=== PATIENT | female | born 1985 | race Caucasian/White ===

== ENCOUNTER 2016-10-30 09:25 | Emergency (ER) | payer OTHER ==
[~2016-10-30] VITALS: Ht 177.8 cm; Wt 115.6 kg
[~2016-10-30 09:25] MED LIST: PREN1TAB60 PO; SUCR1ORA2 PO
[2016-10-30 09:27] VITALS: BP 130/75
[2016-10-30 10:40] LABS: HEMOGLOBIN 11.3 g/dL (11.7-16.4)
== END 2016-10-30 11:41 | disposition home or self-care (01) ==
LOC: ED 09:45
DX: O26.892 Other specified pregnancy related conditions, second trimester (principal); Z3A.39 39 weeks gestation of pregnancy; H11.31 Conjunctival hemorrhage, right eye
CPT/HCPCS: 36415; 85025; 85610; 85730; 99284

== ENCOUNTER 2016-11-06 07:00 | Inpatient (IN) | payer OTHER ==
[~2016-11-06] VITALS: Ht 175.3 cm; Wt 116.3 kg
[2016-11-06] MEDS ORDERED: OXYTOCIN 30U/ 0.9% NaCL 500ML 500 ML IV SCH (07:13)
[2016-11-06] MEDS ORDERED: LACTATED RINGERS 1,000 ML IV SCH (07:13)
[2016-11-06] MEDS ORDERED: METOCLOPRAMIDE 5 MG/ML, 2ML IV ONE (07:30)
[2016-11-06] MEDS ORDERED: LACTATED RINGERS 1,000 ML IVBOLUS ONE (07:30)
[2016-11-06] MEDS ORDERED: SODIUM CITRATE/CITRIC ACID 30 ML UDC PO ONE (07:30)
[2016-11-06] MEDS ORDERED: PLEASE ENTER HEIGHT AND WEIGHT MC SCH (07:30)
[2016-11-06] MEDS ORDERED: ONDANSETRON 2MG/ML, 2ML IVPush ONE (07:30)
[2016-11-06] MEDS ORDERED: FENTANYL PF 100 MCG/2ML ONE (09:54)
[2016-11-06] MEDS ORDERED: HYDROmorphone 2 MG/ML, 1ML ONE (09:55)
[2016-11-06] MEDS ORDERED: NEWBORN KIT ONE (10:12)
[2016-11-06] MEDS ORDERED: SODIUM CITRATE/CITRIC ACID 30 ML UDC ONE (10:38)
[2016-11-06] MEDS ORDERED: OXYTOCIN 30U/ 0.9% NaCL 500ML 500 ML ONE (10:39)
[2016-11-06] MEDS ORDERED: METOCLOPRAMIDE 5 MG/ML, 2ML ONE (10:39)
[2016-11-06] MEDS: LACTATED RINGERS 1,000 ML IV SCH ×4 (11:01→21:24)
[2016-11-06] MEDS: OXYTOCIN 30U/ 0.9% NaCL 500ML 500 ML IV SCH ×2 (11:01→21:01)
[2016-11-06] MEDS ORDERED: OXYcodone/APAP 5/325MG TABLET PO PRN (11:30)
[2016-11-06] MEDS ORDERED: ACETAMINOPHEN 325 MG TABLET PO PRN (11:30)
[2016-11-06] MEDS ORDERED: METOCLOPRAMIDE 5 MG/ML, 2ML IV PRN (11:30)
[2016-11-06] MEDS ORDERED: SIMETHICONE 80 MG CHEW TAB PO PRN (11:30)
[2016-11-06] MEDS ORDERED: CALCIUM CARBONATE 500 MG TAB.CHEW PO PRN (11:30)
[2016-11-06 14:00] VITALS: BP 120/78
[2016-11-06] MEDS: OXYcodone/APAP 5/325MG TABLET PO PRN ×3 (14:30→22:43)
[2016-11-06 16:00] VITALS: BP 118/67
[2016-11-06] MEDS: KETOROLAC 30 MG/1 ML IV SCH (17:09)
[2016-11-06] MEDS: ONDANSETRON 2MG/ML, 2ML IV PRN (18:48)
[2016-11-06 21:00] VITALS: BP 108/64
[2016-11-06] MEDS: DOCUSATE 100 MG CAPSULE PO PRN (22:43)
[2016-11-07] MEDS: ONDANSETRON 2MG/ML, 2ML IV PRN ×3 (00:43→12:28)
[2016-11-07] MEDS: KETOROLAC 30 MG/1 ML IV SCH ×4 (00:43→12:28)
[2016-11-07 01:45] VITALS: BP 107/62
[2016-11-07] MEDS: OXYcodone/APAP 5/325MG TABLET PO PRN ×2 (02:47→06:27)
[2016-11-07] MEDS: LACTATED RINGERS 1,000 ML IV SCH ×5 (03:01→19:01)
[2016-11-07 05:00] VITALS: BP 110/61
[2016-11-07] MEDS: OXYTOCIN 30U/ 0.9% NaCL 500ML 500 ML IV SCH ×2 (07:01→17:01)
[2016-11-07 08:30] VITALS: BP 105/56
[2016-11-07] MEDS: DOCUSATE 100 MG CAPSULE PO PRN ×2 (08:30→21:32)
[2016-11-07] MEDS: PRENATAL VIT/IRON/FA 1 EACH TABLET PO SCH (08:30)
[2016-11-07] MEDS: OXYcodone/APAP 10/325MG TABLET PO PRN ×3 (12:28→21:32)
[2016-11-07] MEDS: ONDANSETRON ODT 4 MG PO PRN ×5 (12:40→21:32)
[2016-11-07] MEDS: IBUPROFEN 600 MG TABLET PO PRN (12:40)
[2016-11-07 21:00] VITALS: BP 132/72
[2016-11-08] MEDS: IBUPROFEN 600 MG TABLET PO PRN ×2 (01:18→07:49)
[2016-11-08] MEDS: OXYcodone/APAP 10/325MG TABLET PO PRN ×3 (01:21→10:53)
[2016-11-08] MEDS: LACTATED RINGERS 1,000 ML IV SCH ×3 (03:01→11:01)
[2016-11-08] MEDS: OXYTOCIN 30U/ 0.9% NaCL 500ML 500 ML IV SCH (03:01)
[2016-11-08] MEDS: ONDANSETRON ODT 4 MG PO PRN (06:25)
[2016-11-08] MEDS: PRENATAL VIT/IRON/FA 1 EACH TABLET PO SCH (07:49)
[2016-11-08] MEDS: DOCUSATE 100 MG CAPSULE PO PRN (07:49)
[2016-11-08 08:32] VITALS: BP 120/72
[2016-11-08] MEDS ORDERED: IBUP-1222 PO (09:00)
[2016-11-08] MEDS ORDERED: DOCU-30 PO (09:02)
[2016-11-08] MEDS ORDERED: OXYC-302 PO (09:04)
== END 2016-11-08 12:35 | disposition home or self-care (01) | DRG 766 ==
LOC: LDIP 07:00 → 2NW 13:42
PROVIDERS: ADMIT Obstetrics & Gynecology; ATTEND Obstetrics & Gynecology
PROC: 10D00Z1 Extraction of Products of Conception, Low, Open Approach (ICD-10-PCS; principal; 2016-11-06)
DX: O34.211 Maternal care for low transverse scar from previous cesarean delivery (principal); Z37.0 Single live birth; Z3A.39 39 weeks gestation of pregnancy; O99.62 Diseases of the digestive system complicating childbirth; K21.9 Gastro-esophageal reflux disease without esophagitis; F32.9 Major depressive disorder, single episode, unspecified; O32.1XX0 Maternal care for breech presentation, not applicable or unspecified; O99.344 Other mental disorders complicating childbirth; Z86.14 Personal history of Methicillin resistant Staphylococcus aureus infection; Z83.3 Family history of diabetes mellitus; Z82.5 Family history of asthma and other chronic lower respiratory diseases
CPT/HCPCS: 36415; 85025; 86850; 86900; J1170; J1885; J2405; J3010; Q0162; J2590; J2765; J7120

== ENCOUNTER 2017-06-17 18:34 | Emergency (ER) | payer OTHER ==
[~2017-06-17] VITALS: Ht 175.3 cm; Wt 99.9 kg
[~2017-06-17 18:34] MED LIST changes: +DOCU-131 PO; +IBUP-1222 PO; +OXYC-302 PO; -SUCR1ORA2 PO; +SUCR1ORA5 PO
[2017-06-17] MEDS ORDERED: ONDANSETRON 2MG/ML, 2ML IVPush ONE (19:30)
[2017-06-17] MEDS ORDERED: SODIUM CHLORIDE FLUSH 10ML SYR IVF ONE (19:30)
[2017-06-17] MEDS ORDERED: FAMOTIDINE 20 MG/2 ML IVP ONE (19:30)
[2017-06-17] MEDS ORDERED: SODIUM CHLORIDE 0.9% 1,000ML IVBOLUS ONE (19:30)
[2017-06-17] MEDS ORDERED: DIPHENHYDRAMINE 50 MG/ML, 1ML ONE (19:42)
[2017-06-17] MEDS ORDERED: KETOROLAC 30 MG/1 ML ONE (19:42)
[2017-06-17] MEDS ORDERED: METOCLOPRAMIDE 5 MG/ML, 2ML ONE (19:42)
[2017-06-17] MEDS ORDERED: FAMOTIDINE 20 MG/2 ML ONE (19:42)
[2017-06-17 19:48] LABS: HEMATOCRIT 43.2 % (34.6-47.8); HEMOGLOBIN 14.1 g/dL (11.7-16.4); WHITE BLOOD COUNT 9.1 x10^3/uL (3.4-10)
[2017-06-17 19:54] LABS: ASPARTATE AMINO TRANSFERASE 14 U/L (15-37); BLOOD UREA NITROGEN 16 mg/dL (7-18)
[2017-06-17] MEDS ORDERED: KETOROLAC 30 MG/1 ML IM ONE (20:00)
[2017-06-17] MEDS ORDERED: DIPHENHYDRAMINE 50 MG/ML, 1ML IVPush ONE (20:00)
[2017-06-17] MEDS ORDERED: METOCLOPRAMIDE 5 MG/ML, 2ML IVPush ONE (20:00)
[2017-06-17] MEDS ORDERED: KETOROLAC 30 MG/1 ML IVPush ONE (21:00)
[2017-06-17 21:09] VITALS: BP 112/62
== END 2017-06-17 22:25 | disposition home or self-care (01) ==
LOC: ED 20:12
DX: K52.9 Noninfective gastroenteritis and colitis, unspecified (principal)
CPT/HCPCS: 36415; 80053; 81003; 83690; 84703; 85025; 96361; 96374; 96375; 99285; J1200; J1885; J2765; J7030; S0028

== ENCOUNTER 2020-07-08 10:00 | Inpatient (IN) | payer OTHER, BC ==
[~2020-07-08] VITALS: Ht 172.7 cm; Wt 129.5 kg
[2020-07-08] MEDS ORDERED: LACTATED RINGERS 1,000 ML IVBOLUS ONE (10:30)
[2020-07-08] MEDS ORDERED: PLEASE ENTER HEIGHT AND WEIGHT MC SCH (11:00)
[2020-07-08 11:11] LABS: BASOPHILS % (AUTO) 0 % (0-1); EOSINOPHILS % (AUTO) 1 % (1-7); LYMPHOCYTES % (AUTO) 21 % (22-44); MEAN CORPUSCULAR HEMOGLOBIN 29.9 pg (27.0-34.8); MEAN CORPUSCULAR HGB CONC 33.3 g/dL (32.4-35.8); MONOCYTES % (AUTO) 6 % (2-9); NEUTROPHILS % (AUTO) 72 % (42-75); PLATELET COUNT 162 x10^3/uL (130-400); RED BLOOD COUNT 4.17 x10^6/uL (3.82-5.3); RED CELL DISTRIBUTION WIDTH 13.5 % (9.6-15.2)
[2020-07-08 11:13] LABS: MD NO
[2020-07-08] MEDS ORDERED: OXYTOCIN 30U/ 0.9% NaCL 500ML 500 ML ONE (11:27)
[2020-07-08] MEDS ORDERED: METOCLOPRAMIDE 5 MG/ML, 2ML ONE (11:27)
[2020-07-08] MEDS ORDERED: SODIUM CITRATE/CITRIC ACID 15 ML UDC ONE (11:27)
[2020-07-08] MEDS ORDERED: MISOPROSTOL 200 MCG TABLET ONE (11:27)
[2020-07-08] MEDS: LACTATED RINGERS 1,000 ML IV SCH ×4 (11:30→23:30)
[2020-07-08] MEDS ORDERED: FENTANYL PF 100 MCG/2ML ONE (11:35)
[2020-07-08] MEDS ORDERED: OXYTOCIN 10 UNITS/ML, 1ML ONE ×4 (11:43→11:44)
[2020-07-08] MEDS ORDERED: KETOROLAC 30 MG/1 ML ONE (11:44)
[2020-07-08] MEDS ORDERED: CLINDAMYCIN PMX 900MG/50ML 0 ML ONE (11:45)
[2020-07-08] MEDS ORDERED: CEFAZOLIN 1,000 MG ONE ×3 (12:02→12:03)
[2020-07-08] MEDS ORDERED: EPHEDRINE 50 MG/ML, 1ML ONE ×2 (12:46)
[2020-07-08] MEDS ORDERED: NEWBORN KIT ONE (13:09)
[2020-07-08] MEDS: KETOROLAC 30 MG/1 ML IV SCH ×2 (13:30→19:46)
[2020-07-08] MEDS ORDERED: MISOPROSTOL 200 MCG TABLET PR PRN (13:30)
[2020-07-08] MEDS ORDERED: ACETAMINOPHEN 325 MG TABLET PO PRN (13:30)
[2020-07-08] MEDS: OXYTOCIN 30U/ 0.9% NaCL 500ML 500 ML IV SCH ×2 (13:30→23:30)
[2020-07-08] MEDS ORDERED: ONDANSETRON 2MG/ML, 2ML IV PRN (13:30)
[2020-07-08] MEDS ORDERED: OXYcodone IR 5MG TABLET PO PRN ×2 (13:30)
[2020-07-08] MEDS ORDERED: DIPHENHYDRAMINE 50 MG/ML, 1ML ONE (13:54)
[2020-07-08] MEDS ORDERED: FENTANYL PF 100 MCG/2ML IV PRN (14:00)
[2020-07-08] MEDS ORDERED: OXYcodone 5 MG/5 ML ORAL.SOL UDC PO PRN (14:00)
[2020-07-08] MEDS ORDERED: ONDANSETRON 2MG/ML, 2ML IVPush PRN (14:00)
[2020-07-08] MEDS ORDERED: LABETALOL 5MG/ML, 20ML IV PRN (14:00)
[2020-07-08] MEDS ORDERED: DIPHENHYDRAMINE 50 MG/ML, 1ML IVPush PRN (14:00)
[2020-07-08] MEDS ORDERED: EPHEDRINE 50 MG/ML, 1ML IM PRN (14:00)
[2020-07-08] MEDS ORDERED: METOCLOPRAMIDE 5 MG/ML, 2ML IVPush PRN (14:00)
[2020-07-08] MEDS ORDERED: EPHEDRINE 50 MG/ML, 1ML IVPush PRN (14:00)
[2020-07-08] MEDS ORDERED: OXYcodone 5 MG/5 ML ORAL.SOL UDC ONE (14:20)
[2020-07-08] MEDS ORDERED: MORPHINE SULFATE 4 MG/ML, 1ML ONE ×3 (14:55→15:48)
[2020-07-08] MEDS: morphine SULFATE 10 MG/ML, 1ML IVPush PRN ×2 (15:00→15:12)
[2020-07-08 15:15] VITALS: BP 121/86
[2020-07-08] MEDS ORDERED: SODIUM CITRATE/CITRIC ACID 30 ML UDC PO ONE (15:30)
[2020-07-08 16:30] VITALS: BP 129/81
[2020-07-08] MEDS: SIMETHICONE 80 MG CHEW TAB PO PRN (16:55)
[2020-07-08] MEDS: MORPHINE SULFATE 4 MG/ML, 1ML IVPush PRN (18:39)
[2020-07-08 19:30] VITALS: BP 130/78
[2020-07-08] MEDS: CETIRIZINE 10 MG TABLET PO SCH (21:25)
[2020-07-08] MEDS: DOCUSATE 100 MG CAPSULE PO PRN (21:25)
[2020-07-08] MEDS: SERTRALINE 100MG TABLET PO SCH (21:25)
[2020-07-08] MEDS: OXYcodone IR 5MG TABLET PO PRN (21:26)
[2020-07-08 23:54] LABS: BASOPHILS % (AUTO) 0 % (0-1); EOSINOPHILS % (AUTO) 0 % (1-7); LYMPHOCYTES % (AUTO) 19 % (22-44); MEAN CORPUSCULAR HEMOGLOBIN 30.2 pg (27.0-34.8); MEAN CORPUSCULAR HGB CONC 33.5 g/dL (32.4-35.8); MEAN PLATELET VOLUME 9.6 fL (7.4-10.4); MONOCYTES % (AUTO) 5 % (2-9); NEUTROPHILS % (AUTO) 75 % (42-75); PLATELET COUNT 126 x10^3/uL (130-400); RED BLOOD COUNT 3.57 x10^6/uL (3.82-5.3); RED CELL DISTRIBUTION WIDTH 13.1 % (9.6-15.2)
[2020-07-08 23:56] LABS: MD NO
[2020-07-09] VITALS: BP 116/79
[2020-07-09] MEDS: SIMETHICONE 80 MG CHEW TAB PO PRN ×3 (00:32→20:48)
[2020-07-09] MEDS: MORPHINE SULFATE 4 MG/ML, 1ML IVPush PRN ×2 (00:36→07:07)
[2020-07-09] MEDS: KETOROLAC 30 MG/1 ML IV SCH ×4 (01:58→20:48)
[2020-07-09] MEDS: OXYcodone IR 5MG TABLET PO PRN ×5 (01:59→14:49)
[2020-07-09 04:33] VITALS: BP 113/78
[2020-07-09] MEDS: LACTATED RINGERS 1,000 ML IV SCH ×5 (05:30→21:30)
[2020-07-09] MEDS: DOCUSATE 100 MG CAPSULE PO PRN ×3 (07:07→20:48)
[2020-07-09] MEDS: PRENATAL VIT/IRON/FA 1 EACH TABLET PO SCH (07:07)
[2020-07-09] MEDS ORDERED: MEPERIDINE/PF 50 MG/ML ONE ×4 (07:45→15:27)
[2020-07-09 07:53] VITALS: BP 114/72
[2020-07-09] MEDS: MEPERIDINE/PF 25MG/0.5ML IM PRN ×3 (07:55→15:33)
[2020-07-09] MEDS: OXYTOCIN 30U/ 0.9% NaCL 500ML 500 ML IV SCH ×2 (09:30→19:30)
[2020-07-09 12:20] VITALS: BP 112/71
[2020-07-09] MEDS: CALCIUM CARBONATE 500 MG TAB.CHEW PO PRN (16:19)
[2020-07-09] MEDS ORDERED: OMEPRAZOLE 20 MG CAPSULE.DR PO ONE (16:30)
[2020-07-09] MEDS ORDERED: POLYETHYLENE GLYCOL 17 GM PACKET PO PRN (17:00)
[2020-07-09] MEDS: OXYcodone/APAP 10/325MG TABLET PO PRN ×2 (17:29→20:49)
[2020-07-09 20:00] VITALS: BP 134/89
[2020-07-09] MEDS: CETIRIZINE 10 MG TABLET PO SCH (20:54)
[2020-07-09] MEDS: SERTRALINE 100MG TABLET PO SCH (21:00)
[2020-07-10] MEDS: KETOROLAC 30 MG/1 ML IV SCH ×2 (02:15→08:00)
[2020-07-10] MEDS: OXYcodone/APAP 10/325MG TABLET PO PRN ×6 (02:16→22:11)
[2020-07-10] MEDS: OXYTOCIN 30U/ 0.9% NaCL 500ML 500 ML IV SCH ×2 (05:30→15:30)
[2020-07-10] MEDS: LACTATED RINGERS 1,000 ML IV SCH ×5 (05:30→21:30)
[2020-07-10] MEDS: OMEPRAZOLE 20 MG CAPSULE.DR PO SCH (06:00)
[2020-07-10] MEDS: CALCIUM CARBONATE 500 MG TAB.CHEW PO PRN (06:28)
[2020-07-10 08:00] VITALS: BP 120/73
[2020-07-10] MEDS: SIMETHICONE 80 MG CHEW TAB PO PRN ×2 (08:00→13:50)
[2020-07-10] MEDS: DOCUSATE 100 MG CAPSULE PO PRN ×2 (08:00→20:21)
[2020-07-10] MEDS: PRENATAL VIT/IRON/FA 1 EACH TABLET PO SCH (08:00)
[2020-07-10] MEDS ORDERED: MEPERIDINE/PF 50 MG/ML ONE (10:56)
[2020-07-10] MEDS ORDERED: MEPERIDINE/PF 50 MG/ML IM ONE (11:00)
[2020-07-10] MEDS: IBUPROFEN 600 MG TABLET PO PRN ×2 (13:49→20:21)
[2020-07-10 20:00] VITALS: BP 125/85
[2020-07-10] MEDS: CETIRIZINE 10 MG TABLET PO SCH (20:21)
[2020-07-10] MEDS: SERTRALINE 100MG TABLET PO SCH (20:21)
[2020-07-11] MEDS: OXYTOCIN 30U/ 0.9% NaCL 500ML 500 ML IV SCH (01:30)
[2020-07-11] MEDS: LACTATED RINGERS 1,000 ML IV SCH ×2 (01:30→05:30)
[2020-07-11] MEDS: IBUPROFEN 600 MG TABLET PO PRN ×3 (03:12→14:25)
[2020-07-11] MEDS: OXYcodone/APAP 10/325MG TABLET PO PRN ×3 (03:12→11:41)
[2020-07-11 07:30] VITALS: BP 126/84
[2020-07-11] MEDS: PRENATAL VIT/IRON/FA 1 EACH TABLET PO SCH (07:36)
[2020-07-11] MEDS: DOCUSATE 100 MG CAPSULE PO PRN (07:36)
[2020-07-11] MEDS: OMEPRAZOLE 20 MG CAPSULE.DR PO SCH (07:37)
[2020-07-11] MEDS ORDERED: IBUP-1222 PO (09:46)
[2020-07-11] MEDS: OXYcodone IR 5MG TABLET PO PRN (14:25)
== END 2020-07-11 14:40 | disposition home or self-care (01) | DRG 785 ==
LOC: LDIP 10:00 → 2NW 16:06
PROVIDERS: ADMIT Obstetrics & Gynecology; ATTEND Obstetrics & Gynecology
PROC: 10D00Z1 Extraction of Products of Conception, Low, Open Approach (ICD-10-PCS; principal; 2020-07-08)
PROC: 0UB70ZZ Excision of Bilateral Fallopian Tubes, Open Approach (ICD-10-PCS; 2020-07-08)
DX: O34.211 Maternal care for low transverse scar from previous cesarean delivery (principal); Z88.0 Allergy status to penicillin; Z20.828 Contact with and (suspected) exposure to other viral communicable diseases; Z30.2 Encounter for sterilization; Z37.0 Single live birth; Z82.3 Family history of stroke; Z82.49 Family history of ischemic heart disease and other diseases of the circulatory system; Z83.3 Family history of diabetes mellitus
CPT/HCPCS: 36415; 85025; 86592; 86850; 86900; 87081; 87635; 87880; 88302; G0378; J0690; J1885; J2175; J3010; J1200; J2270; J2590; J2765; J7120